=== PATIENT | female | born 1965 | race Two or more races ===

== ENCOUNTER 2016-09-09 11:15 | Emergency (ER) | payer MEDICARE, MEDICAID ==
[~2016-09-09] VITALS: Ht 167.6 cm; Wt 55.0 kg
[~2016-09-09 11:15] MED LIST: CLON1TAB4 PO; SERT100T PO; SIMV10TA6 PO; TEMA30CA PO; ZYDS20 PO
[2016-09-09 17:16] VITALS: BP 146/94
== END 2016-09-09 17:17 | disposition left against medical advice (07) ==
LOC: ER 11:29
DX: F10.129 Alcohol abuse with intoxication, unspecified (principal); I10 Essential (primary) hypertension; E78.00 Pure hypercholesterolemia, unspecified; F41.9 Anxiety disorder, unspecified; R55 Syncope and collapse; Z79.899 Other long term (current) drug therapy; F31.9 Bipolar disorder, unspecified; Z90.89 Acquired absence of other organs; Y90.8 Blood alcohol level of 240 mg/100 ml or more
CPT/HCPCS: 36415; 99283; G0482

== ENCOUNTER 2018-12-27 15:21 | Inpatient (IN) | payer MEDICARE, MEDICAID ==
[~2018-12-27] VITALS: Ht 160 cm; Wt 64.9 kg
[~2018-12-27 15:21] MED LIST changes: +CLON1TAB12 PO; -CLON1TAB4 PO
[2018-12-27] MEDS ORDERED: SODIUM CHLORIDE 0.9% 1,000 ML IV ONE (16:33)
[2018-12-27] MEDS ORDERED: LORAZEPAM 2MG/ML CPJ ONE (16:35)
[2018-12-27] MEDS ORDERED: HYDRALAZINE 20MG/ML VIAL IV ONE (16:45)
[2018-12-27] MEDS ORDERED: LORAZEPAM 2MG/ML CPJ IV ONE (16:45)
[2018-12-27 16:55] LABS: BASOPHILS % 0.4 % (0.0-2.0); EOSINOPHILS % 0.1 % (0.0-5.0); HEMATOCRIT. 38.5 % (36.0-48.0); HEMOGLOBIN. 13.1 g/dL (12.0-16.0); LYMPHOCYTES % 20.7 % (20.0-50.0); MEAN CORPUSCULAR VOLUME 99.8 fL (81.0-99.0); MEAN PLATELET VOLUME 7.6 fl (7.4-10.4); MONOCYTES % 4.9 % (2.0-8.0); NEUTROPHILS % 73.9 % (40.0-76.0); PLATELET 192 x1000/uL (130-400); RED BLOOD CELL COUNT 3.86 mill/uL (4.2-5.4); RED CELL DISTRIBUTION WIDTH 13.9 % (11.6-14.6)
[2018-12-27 17:12] LABS: CHLORIDE 95 mEq/L (98-107)
[2018-12-27 17:17] LABS: ETHANOL BLOOD 32 mg/dL
[2018-12-27 17:29] LABS: CARBAMAZEPINE < 0.5 ug/mL (4-12); PHENOBARBITAL < 2.1 ug/mL (15.0-40.0)
[2018-12-27] MEDS ORDERED: LACTULOSE 20G/30ML UDC PO ONE (18:15)
[2018-12-27] MEDS ORDERED: FOLIC ACID 1 MG, THIAMINE HCL 100 MG, MVI, ADULT NO.1 10 ML in DEXTROSE 5% WATER 1,000 ML IV ONE ×4 (18:30)
[2018-12-27] MEDS ORDERED: LEVETIRACETAM 500MG PREMIX 100 ML IV ONE (18:30)
[2018-12-27] MEDS ORDERED: THIAMINE HCL 100 MG/1 ML 2ML VIAL ONE (19:04)
[2018-12-27 19:15] LABS: CLARITY URINE CLEAR (CLEAR); COLOR URINE YELLOW (YELLOW); KETONES URINE NEGATIVE (NEGATIVE); LEUKOCYTE ESTERASE URINE TRACE (NEGATIVE); NITRITE URINE POSITIVE (NEGATIVE); OCCULT BLOOD URINE NEGATIVE (NEGATIVE); PROTEIN URINE NEGATIVE (NEGATIVE); SPECIFIC GRAVITY URINE 1.006 (1.005-1.030); UROBILINOGEN URINE 0.2 E.U./dL (0.2-1.0)
[2018-12-27 19:26] LABS: *AMPHETAMINES SCREEN URINE NEGATIVE (NEGATIVE); *BARBITURATES SCREEN URINE NEGATIVE (NEGATIVE)
[2018-12-27 19:27] LABS: *BENZODIAZEPINES SCREEN URINE NEGATIVE (NEGATIVE); *COCAINE SCREEN URINE NEGATIVE (NEGATIVE); CANNABINOID URINE SCREEN NEGATIVE (NEGATIVE); METHADONE URINE SCREEN NEGATIVE (NEGATIVE); OPIATES URINE SCREEN NEGATIVE (NEGATIVE); PHENCYCLIDINE URINE SCREEN NEGATIVE (NEGATIVE)
[2018-12-27 20:10] VITALS: BP 156/96
[2018-12-27] MEDS ORDERED: ONDANSETRON HCL 4MG/2ML INJ IV PRN (21:30)
[2018-12-27] MEDS ORDERED: ACETAMINOPHEN 325MG TABLET PO PRN (21:30)
[2018-12-27] MEDS ORDERED: ZOLPIDEM TARTRATE 5MG TABLET PO PRN (21:30)
[2018-12-27] MEDS ORDERED: IPRATROPIUM/ALBUTEROL 0.5-3(2.5)MG/3ML NEB HHN PRN (21:30)
[2018-12-27] MEDS ORDERED: ENOXAPARIN 40MG/0.4ML SYR SUBCUT SCH (21:30)
[2018-12-27 22:16] LABS: HEPATITIS B SURFACE ANTIGEN NEGATIVE
[2018-12-27 22:46] LABS: HEPATITIS A AB IGM NEGATIVE (NEGATIVE)
[2018-12-27] MEDS ORDERED: ENOXAPARIN 30MG/0.3ML SYR SUBCUT SCH (23:00)
[2018-12-27] MEDS: LACTULOSE 20G/30ML UDC PO SCH (23:05)
[2018-12-27] MEDS: LORAZEPAM 2MG/ML CPJ IV PRN (23:06)
[2018-12-28] VITALS: BP 160/91
[2018-12-28] MEDS: CLONIDINE 0.2MG TABLET PO PRN ×3 (01:15→20:38)
[2018-12-28 04:00] VITALS: BP 155/94
[2018-12-28] MEDS: LACTULOSE 20G/30ML UDC PO SCH ×3 (06:32→21:46)
[2018-12-28 07:29] LABS: BG BASE EXCESS 0.2 mmol/L (-2.0-2.0); BG CARBOXYHEMOGLOBIN 0.6 % (0.5-1.5); BG DEOXYHEMOGLOBIN 3.5 % (0.0-5.0); BG HCO3 ACT 24.1 mmol/L (22.0-26.0); BG METHEMOGLOBIN 0.2 % (0.0-1.5); BG OXYGEN SATURATION 96.5 % (92.0-98.5); BG OXYHEMOGLOBIN 95.7 % (94.0-97.0); BG PCO2 36.4 mmHg (35.0-45.0); BG PH 7.438 (7.350-7.450); BG SAMPLE SITE RIGHT BRACHIAL; BG TOTAL HEMOGLOBIN 13.2 g/dL (12.0-18.0); BG VENT MODE ROOM AIR
[2018-12-28 08:00] VITALS: BP 186/108
[2018-12-28] MEDS ORDERED: CLONAZEPAM 1MG TABLET PO SCH (09:00)
[2018-12-28] MEDS ORDERED: SERTRALINE HCL 100MG TABLET PO SCH (09:00)
[2018-12-28] MEDS: SERTRALINE HCL 100MG TABLET PO SCH (09:43)
[2018-12-28 10:44] LABS: CHLORIDE 92 mEq/L (98-107)
[2018-12-28 11:32] LABS: VITAMIN B12 SERUM 1056 pg/mL (211-911)
[2018-12-28 11:34] LABS: FOLIC ACID (FOLATE) SERUM > 20.00 ng/mL (>5.38)
[2018-12-28] MEDS: THIAMINE HCL 100MG TABLET PO SCH ×2 (15:35→16:37)
[2018-12-28] MEDS: FOLIC ACID 1MG TABLET PO SCH (15:35)
[2018-12-28] MEDS: LORAZEPAM 2MG/ML CPJ IV PRN (15:42)
[2018-12-28 20:00] VITALS: BP 172/120
[2018-12-28] MEDS: POTASSIUM CHLORIDE 20MEQ TABLET SR PO SCH (20:37)
[2018-12-28] MEDS: CLONAZEPAM 1MG TABLET PO SCH (20:38)
[2018-12-28] MEDS: ENOXAPARIN 40MG/0.4ML SYR SUBCUT SCH (20:39)
[2018-12-29] VITALS: BP 169/105
[2018-12-29] MEDS: LORAZEPAM 2MG/ML CPJ IV PRN (02:20)
[2018-12-29 04:00] VITALS: BP 169/104
[2018-12-29] MEDS: LACTULOSE 20G/30ML UDC PO SCH ×3 (05:17→21:14)
[2018-12-29] MEDS: CLONIDINE 0.2MG TABLET PO PRN ×2 (05:19→17:17)
[2018-12-29 06:20] LABS: BASOPHILS % 0.1 % (0.0-2.0); EOSINOPHILS % 0.2 % (0.0-5.0); HEMATOCRIT. 36.4 % (36.0-48.0); HEMOGLOBIN. 13.1 g/dL (12.0-16.0); LYMPHOCYTES % 13.4 % (20.0-50.0); MEAN CORPUSCULAR HEMOGLOBIN 34.8 pg (28.0-32.0); MEAN CORPUSCULAR VOLUME 96.6 fL (81.0-99.0); MEAN PLATELET VOLUME 7.6 fl (7.4-10.4); MONOCYTES % 6.4 % (2.0-8.0); NEUTROPHILS % 79.9 % (40.0-76.0); PLATELET 199 x1000/uL (130-400); RED BLOOD CELL COUNT 3.76 mill/uL (4.2-5.4); RED CELL DISTRIBUTION WIDTH 13.8 % (11.6-14.6)
[2018-12-29 06:41] LABS: CHLORIDE 84 mEq/L (98-107)
[2018-12-29 08:00] VITALS: BP 155/100
[2018-12-29] MEDS ORDERED: SODIUM CHLORIDE 3% 500ML IV SOLN IV ONE (08:15)
[2018-12-29] MEDS ORDERED: ENOXAPARIN 40MG/0.4ML SYR SUBCUT SCH (09:00)
[2018-12-29] MEDS: THIAMINE HCL 100MG TABLET PO SCH ×2 (10:23→17:17)
[2018-12-29] MEDS: POTASSIUM CHLORIDE 20MEQ TABLET SR PO SCH ×2 (10:23→20:21)
[2018-12-29] MEDS: FOLIC ACID 1MG TABLET PO SCH (10:23)
[2018-12-29] MEDS: SERTRALINE HCL 100MG TABLET PO SCH (10:23)
[2018-12-29] MEDS: RIFAXIMIN 550 MG TABLET PO SCH ×2 (11:35→20:21)
[2018-12-29 12:00] VITALS: BP 150/100
[2018-12-29] MEDS ORDERED: SODIUM CHLORIDE 3% 500 ML IV NR (12:00)
[2018-12-29 16:00] VITALS: BP 180/110
[2018-12-29 20:00] VITALS: BP 175/109
[2018-12-29] MEDS: CLONAZEPAM 1MG TABLET PO SCH (20:21)
[2018-12-29] MEDS: ENOXAPARIN 40MG/0.4ML SYR SUBCUT SCH (20:24)
[2018-12-29] MEDS ORDERED: LORAZEPAM 2MG/ML CPJ IV NR (21:00)
[2018-12-29] MEDS ORDERED: METOPROLOL TARTRATE 25MG TABLET PO NR (21:00)
[2018-12-29] MEDS: TEMAZEPAM 15MG CAPSULE PO PRN (22:20)
[2018-12-30] VITALS: BP 148/69
[2018-12-30 04:00] VITALS: BP 175/98
[2018-12-30] MEDS: LACTULOSE 20G/30ML UDC PO SCH ×3 (06:26→21:34)
[2018-12-30] MEDS: CLONIDINE 0.2MG TABLET PO PRN ×2 (06:38→16:27)
[2018-12-30 07:02] LABS: BASOPHILS % 0.1 % (0.0-2.0); EOSINOPHILS % 0.1 % (0.0-5.0); HEMATOCRIT. 36.2 % (36.0-48.0); HEMOGLOBIN. 12.4 g/dL (12.0-16.0); LYMPHOCYTES % 8.9 % (20.0-50.0); MEAN CORPUSCULAR HEMOGLOBIN 33.7 pg (28.0-32.0); MEAN CORPUSCULAR VOLUME 98.3 fL (81.0-99.0); MEAN PLATELET VOLUME 7.7 fl (7.4-10.4); MONOCYTES % 8.1 % (2.0-8.0); NEUTROPHILS % 82.8 % (40.0-76.0); PLATELET 217 x1000/uL (130-400); RED BLOOD CELL COUNT 3.68 mill/uL (4.2-5.4); RED CELL DISTRIBUTION WIDTH 13.8 % (11.6-14.6)
[2018-12-30 07:07] LABS: CHLORIDE 83 mEq/L (98-107)
[2018-12-30 08:00] VITALS: BP 156/78
[2018-12-30] MEDS ORDERED: HALOPERIDOL LACTATE 5MG/ML VIAL IM NR (08:15)
[2018-12-30] MEDS: RIFAXIMIN 550 MG TABLET PO SCH ×2 (08:30→20:44)
[2018-12-30] MEDS: DEMECLOCYCLINE HCL 300MG TABLET PO SCH ×3 (08:30→21:34)
[2018-12-30] MEDS: THIAMINE HCL 100MG TABLET PO SCH ×2 (08:31→16:27)
[2018-12-30] MEDS: METOPROLOL TARTRATE 25MG TABLET PO SCH ×2 (08:31→20:44)
[2018-12-30] MEDS: SERTRALINE HCL 100MG TABLET PO SCH (08:31)
[2018-12-30] MEDS: FOLIC ACID 1MG TABLET PO SCH (08:31)
[2018-12-30] MEDS: POTASSIUM CHLORIDE 20MEQ TABLET SR PO SCH ×2 (08:31→20:43)
[2018-12-30] MEDS ORDERED: HALOPERIDOL 0.5MG TABLET PO PRN (09:00)
[2018-12-30 12:00] VITALS: BP 158/92
[2018-12-30] MEDS: CEFEPIME 1,000 MG in DEXTROSE 5% WATER 50 ML IV SCH ×2 (13:12→20:48)
[2018-12-30 16:00] VITALS: BP 163/74
[2018-12-30 20:00] VITALS: BP 144/81
[2018-12-30] MEDS: CLONAZEPAM 1MG TABLET PO SCH (20:43)
[2018-12-30] MEDS: TEMAZEPAM 15MG CAPSULE PO PRN ×2 (20:45→21:34)
[2018-12-30] MEDS: ENOXAPARIN 40MG/0.4ML SYR SUBCUT SCH (20:46)
[2018-12-31] VITALS: BP 144/72
[2018-12-31 04:00] VITALS: BP 131/70
[2018-12-31] MEDS: LACTULOSE 20G/30ML UDC PO SCH ×2 (05:38→13:04)
[2018-12-31] MEDS: DEMECLOCYCLINE HCL 300MG TABLET PO SCH ×2 (05:38→13:04)
[2018-12-31 07:08] LABS: HEMATOCRIT. 34.1 % (36.0-48.0); HEMOGLOBIN. 12.2 g/dL (12.0-16.0); MEAN CORPUSCULAR HEMOGLOBIN 34.4 pg (28.0-32.0); MEAN CORPUSCULAR VOLUME 96.1 fL (81.0-99.0); MEAN PLATELET VOLUME 7.8 fl (7.4-10.4); PLATELET 192 x1000/uL (130-400); RED BLOOD CELL COUNT 3.55 mill/uL (4.2-5.4); RED CELL DISTRIBUTION WIDTH 13.7 % (11.6-14.6)
[2018-12-31 07:27] LABS: CHLORIDE 89 mEq/L (98-107)
[2018-12-31 08:00] VITALS: BP 158/90
[2018-12-31] MEDS: POTASSIUM CHLORIDE 20MEQ TABLET SR PO SCH (08:31)
[2018-12-31] MEDS: SERTRALINE HCL 100MG TABLET PO SCH (08:32)
[2018-12-31] MEDS: RIFAXIMIN 550 MG TABLET PO SCH (08:32)
[2018-12-31] MEDS: METOPROLOL TARTRATE 25MG TABLET PO SCH (08:32)
[2018-12-31] MEDS: CEFEPIME 1,000 MG in DEXTROSE 5% WATER 50 ML IV SCH (08:32)
[2018-12-31] MEDS: THIAMINE HCL 100MG TABLET PO SCH ×2 (08:32→16:45)
[2018-12-31] MEDS: FOLIC ACID 1MG TABLET PO SCH (08:32)
[2018-12-31] MEDS ORDERED: THIA50TA11 MT (09:20)
[2018-12-31] MEDS ORDERED: METO-396 MT (09:20)
[2018-12-31] MEDS ORDERED: LACT10SO MT (09:20)
[2018-12-31] MEDS ORDERED: CLON0.2T PO (09:20)
[2018-12-31] MEDS ORDERED: SODIUM CHLORIDE 3% 500 ML IV NR (10:00)
[2018-12-31 10:27] VITALS: BP 158/90
[2018-12-31 12:00] VITALS: BP 160/86
[2018-12-31 15:00] LABS: PLATELET ESTIMATE NORMAL
[2018-12-31 16:00] VITALS: BP 160/80
== END 2018-12-31 17:52 | disposition home or self-care (01) | DRG 101 ==
LOC: ER 15:21 → 8WST 18:25 → ENRESERV 19:36 → 8WST 12-29 18:20
PROVIDERS: ADMIT Internal Medicine Geriatric Medicine; ATTEND Internal Medicine Geriatric Medicine
DX: G40.89 Other seizures (principal); F10.239 Alcohol dependence with withdrawal, unspecified; E87.1 Hypo-osmolality and hyponatremia; D75.89 Other specified diseases of blood and blood-forming organs; Y90.1 Blood alcohol level of 20-39 mg/100 ml; K70.9 Alcoholic liver disease, unspecified; I10 Essential (primary) hypertension; F31.9 Bipolar disorder, unspecified; R73.9 Hyperglycemia, unspecified; F43.10 Post-traumatic stress disorder, unspecified; E87.6 Hypokalemia; G47.00 Insomnia, unspecified; F20.9 Schizophrenia, unspecified; D72.829 Elevated white blood cell count, unspecified; G31.2 Degeneration of nervous system due to alcohol; K76.0 Fatty (change of) liver, not elsewhere classified; Z79.899 Other long term (current) drug therapy
CPT/HCPCS: 36415; 36600; 71045; 76700; 80156; 80165; 80184; 80185; 80305; 80320; 81003; 82140; 82375; 82607; 82746; 82805; 82962; 84484; 86705; 86709; 86803; 87340; 93005; 97161; 99285; C1893; J0360; J0692; J1630; J1650; J1953; J2060; J3411; J3490; J7030; J7040; J7060; J7070; G0480

== ENCOUNTER 2019-09-29 12:46 | Emergency (ER) | payer MEDICARE, MEDICAID ==
[~2019-09-29] VITALS: Ht 160 cm; Wt 66.0 kg
[~2019-09-29 12:46] MED LIST changes: +CLON0.2T PO; +LACT10SO MT; +METO-396 MT; -SIMV10TA6 PO; +SIMV10TA97 PO; +THIA50TA11 MT
[2019-09-29] MEDS ORDERED: IBUPROFEN 600MG TABLET PO ONE (13:45)
[2019-09-29 15:11] VITALS: BP 154/101
[2019-10-06] MEDS ORDERED: ATOR20TA65 PO (17:28)
[2019-10-06] MEDS ORDERED: ZIPR60CA6 PO (17:28)
[2019-10-06] MEDS ORDERED: ZIPR80CA2 PO (17:28)
[2019-10-07] MEDS ORDERED: IBUP-2030 PO (12:21)
[2019-10-07] MEDS ORDERED: HYDR-4001 PO (12:21)
[2019-10-07] MEDS ORDERED: CLON0.2T PO (12:24)
[2019-10-10] MEDS ORDERED: AMLO5TAB88 PO (11:36)
== END 2019-09-29 15:52 | disposition home or self-care (01) ==
LOC: ER 12:46
DX: S49.092A Other physeal fracture of upper end of humerus, left arm, initial encounter for closed fracture (principal); I10 Essential (primary) hypertension; F31.9 Bipolar disorder, unspecified; Z90.89 Acquired absence of other organs; W06.XXXA Fall from bed, initial encounter; Y93.89 Activity, other specified; Y92.013 Bedroom of single-family (private) house as the place of occurrence of the external cause
CPT/HCPCS: 73060; 73070; 99284

== ENCOUNTER → 2019-10-06 | Outpatient (CLI) | payer MEDICARE, MEDICAID ==
[~2019-10-06] MED LIST changes: +ATOR20TA65 PO; +HYDR-4001 PO; +IBUP-2030 PO; +ZIPR60CA6 PO; +ZIPR80CA2 PO
== END | disposition home or self-care (01) ==
LOC: LAB 11:44
PROVIDERS: ATTEND Orthopaedic Surgery
DX: Z01.818 Encounter for other preprocedural examination (principal); Z11.59 Encounter for screening for other viral diseases
CPT/HCPCS: C9803; U0003

== ENCOUNTER 2020-08-11 03:47 | Emergency (ER) | payer MEDICARE, MEDICAID ==
[~2020-08-11] VITALS: Ht 165.1 cm; Wt 68.0 kg
[~2020-08-11 03:47] MED LIST changes: +AMLO5TAB88 PO; -CLON0.2T PO; -IBUP-2030 PO; -LACT10SO MT; -METO-396 MT; -SERT100T PO; -SIMV10TA97 PO; -TEMA30CA PO; -THIA50TA11 MT; -ZYDS20 PO
[2020-08-11] MEDS ORDERED: ONDANSETRON HCL 4MG/2ML INJ IV STA (04:53)
[2020-08-11] MEDS ORDERED: SODIUM CHLORIDE 0.9% 1,000 ML IV ONE (05:00)
[2020-08-11] MEDS ORDERED: LEVETIRACETAM 500MG PREMIX 100 ML IV ONE (05:00)
[2020-08-11 05:23] LABS: BASOPHILS % 0.2 % (0.0-2.0); CHLORIDE 93 mEq/L (98-107); EOSINOPHILS % 0.1 % (0.0-5.0); HEMATOCRIT. 38.7 % (36.0-48.0); MEAN CORPUSCULAR VOLUME 95.5 fL (81.0-99.0); MONOCYTES % 7.8 % (2.0-8.0); NEUTROPHILS % 76.9 % (40.0-76.0); PLATELET 150 x1000/uL (130-400); RED BLOOD CELL COUNT 4.05 mill/uL (4.2-5.4); RED CELL DISTRIBUTION WIDTH 14.7 % (11.6-14.6)
[2020-08-11 05:29] LABS: ETHANOL BLOOD < 10 mg/dL
[2020-08-11] MEDS ORDERED: KEPP500 MT (05:50)
[2020-08-11 06:47] VITALS: BP 180/99
== END 2020-08-11 06:48 | disposition home or self-care (01) ==
LOC: ER 03:47
DX: R56.9 Unspecified convulsions (principal); I10 Essential (primary) hypertension; F20.9 Schizophrenia, unspecified; Z98.890 Other specified postprocedural states
CPT/HCPCS: 36415; 70450; 71045; 80053; 80320; 85025; 93005; 96365; 96375; 99285; J1953; J2405; J7030; G0480

== ENCOUNTER 2021-11-17 08:36 | Inpatient (IN) | payer MEDICARE, MEDICAID ==
[~2021-11-17] VITALS: Ht 165.1 cm; Wt 56.7 kg
[~2021-11-17 08:36] MED LIST changes: +KEPP500 MT
[2021-11-17] MEDS ORDERED: LORAZEPAM 2MG/ML CPJ ONE (09:53)
[2021-11-17] MEDS ORDERED: LEVETIRACETAM 1000MG PREMIX 100 ML IV ONE (10:00)
[2021-11-17 10:39] LABS: BASOPHILS % 0.3 % (0.0-2.0); HEMATOCRIT. 36.2 % (36.0-48.0); HEMOGLOBIN. 12.7 g/dL (12.0-16.0); LYMPHOCYTES % 13.5 % (20.0-50.0); MEAN CORPUSCULAR HEMOGLOBIN 33.2 pg (28.0-32.0); MEAN CORPUSCULAR VOLUME 95.1 fL (81.0-99.0); MEAN PLATELET VOLUME 6.8 fl (7.4-10.4); MONOCYTES % 6.9 % (2.0-8.0); NEUTROPHILS % 79.3 % (40.0-76.0); PLATELET 208 x1000/uL (130-400); RED BLOOD CELL COUNT 3.81 mill/uL (4.2-5.4); RED CELL DISTRIBUTION WIDTH 16.1 % (11.6-14.6)
[2021-11-17] MEDS ORDERED: LEVETIRACETAM 1000MG PREMIX 100 ML IV NR (10:45)
[2021-11-17 10:48] LABS: CHLORIDE 82 mEq/L (98-107)
[2021-11-17 10:56] LABS: ETHANOL BLOOD < 10 mg/dL
[2021-11-17] MEDS ORDERED: LORAZEPAM 2MG/ML CPJ IV ONE (12:30)
[2021-11-17] MEDS ORDERED: LORAZEPAM 1MG TABLET PO ONE (12:30)
[2021-11-17] MEDS ORDERED: POTASSIUM CHLORIDE 20MEQ TABLET SR PO ONE (15:15)
[2021-11-17] MEDS ORDERED: ACETAMINOPHEN 325MG TABLET PO PRN (15:30)
[2021-11-17] MEDS ORDERED: CLONIDINE 0.1MG TABLET PO PRN (15:30)
[2021-11-17] MEDS ORDERED: IPRATROPIUM/ALBUTEROL 0.5-3(2.5)MG/3ML NEB HHN PRN (15:30)
[2021-11-17] MEDS ORDERED: DIPHENHYDRAMINE 50MG/ML VIAL IV PRN (15:30)
[2021-11-17] MEDS ORDERED: ONDANSETRON HCL 4MG/2ML INJ IV PRN (15:30)
[2021-11-17] MEDS ORDERED: LORAZEPAM 2MG/ML CPJ IV PRN (15:30)
[2021-11-17] MEDS: SODIUM CHLORIDE 0.9% 1,000 ML IV SCH ×3 (16:05→19:02)
[2021-11-17 18:00] VITALS: BP 130/75
[2021-11-17 20:00] VITALS: BP 136/100
[2021-11-17] MEDS ORDERED: LEVETIRACETAM 500MG PREMIX 100 ML IV SCH ×2 (21:00→22:00)
[2021-11-17] MEDS ORDERED: ATORVASTATIN CALCIUM 20MG TABLET PO SCH (21:00)
[2021-11-17] MEDS: CHLORDIAZEPOXIDE 25MG CAPSULE PO SCH (21:20)
[2021-11-17] MEDS: AMLODIPINE 5MG TABLET PO SCH (21:20)
[2021-11-17] MEDS: CLONAZEPAM 1MG TABLET PO SCH (21:21)
[2021-11-17] MEDS ORDERED: ZIPRASIDONE HCL 40MG CAPSULE PO SCH (22:00)
[2021-11-18] VITALS: BP 147/95
[2021-11-18] MEDS ORDERED: TEMAZEPAM 15MG CAPSULE PO PRN
[2021-11-18 04:00] VITALS: BP 137/100
[2021-11-18] MEDS: CHLORDIAZEPOXIDE 25MG CAPSULE PO SCH (06:29)
[2021-11-18] MEDS: CLONAZEPAM 1MG TABLET PO SCH (06:29)
[2021-11-18 07:18] LABS: CHLORIDE 93 mEq/L (98-107)
[2021-11-18 08:00] VITALS: BP 149/94
[2021-11-18] MEDS: AMLODIPINE 5MG TABLET PO SCH (08:55)
[2021-11-18] MEDS ORDERED: POTASSIUM CHLORIDE 20MEQ/PACKET PO NR (09:45)
== END 2021-11-18 09:10 | disposition left against medical advice (07) | DRG 101 ==
LOC: ER 08:36 → 7WST 13:32 → EDBEDREQTM 13:37 → EDBEDREQ 13:37 → ENRESERV 13:51 → 7WST 11-18 06:06
PROVIDERS: ADMIT Internal Medicine; ATTEND Internal Medicine
DX: R56.9 Unspecified convulsions (principal); F13.239 Sedative, hypnotic or anxiolytic dependence with withdrawal, unspecified; E87.1 Hypo-osmolality and hyponatremia; F20.9 Schizophrenia, unspecified; I10 Essential (primary) hypertension; F10.20 Alcohol dependence, uncomplicated; R74.01 Elevation of levels of liver transaminase levels; E87.6 Hypokalemia; Z53.29 Procedure and treatment not carried out because of patient's decision for other reasons; Z91.14 Patient's other noncompliance with medication regimen
CPT/HCPCS: 36415; 80053; 80320; 82962; 85025; 93970; 99285; J1953; J2060; G0480

== ENCOUNTER 2022-02-18 23:16 | Emergency (ER) | payer MEDICARE, MEDICAID ==
[~2022-02-18] VITALS: Ht 162.6 cm; Wt 97.6 kg
[2022-02-18] MEDS ORDERED: KETOROLAC 60MG/2ML VIAL IM ONE (23:45)
[2022-02-18] MEDS ORDERED: HYDROCODONE/ACETAMINOPHEN 5/325MG TABLET PO ONE (23:45)
[2022-02-18] MEDS ORDERED: LIDOCAINE HCL 1% 20ML VIAL (Pyxis) INJ INFIL ONE (23:45)
[2022-02-19 00:05] VITALS: BP 206/118
[2022-02-19] MEDS ORDERED: LIDOCAINE HCL 1% 10 MG/ML 10ML VIAL IJ NR (00:45)
[2022-02-19] MEDS ORDERED: NAPR-681 PO (12:00)
[2022-02-19] MEDS ORDERED: HYDR-4001 MT (12:00)
== END 2022-02-19 01:40 | disposition left against medical advice (07) ==
LOC: ER 23:16
DX: S52.592A Other fractures of lower end of left radius, initial encounter for closed fracture (principal); S52.602A Unspecified fracture of lower end of left ulna, initial encounter for closed fracture; W18.39XA Other fall on same level, initial encounter; Y93.89 Activity, other specified; Y92.89 Other specified places as the place of occurrence of the external cause; Y99.8 Other external cause status; I10 Essential (primary) hypertension; Z98.890 Other specified postprocedural states; Z87.891 Personal history of nicotine dependence; Z79.899 Other long term (current) drug therapy
CPT/HCPCS: 29125; 73090; 73110; 96372; 99284; J1885; J3490

== ENCOUNTER 2022-02-19 10:05 | Emergency (ER) | payer MEDICARE, MEDICAID ==
[~2022-02-19] VITALS: Ht 160 cm; Wt 59.0 kg
[2022-02-19 10:41] VITALS: BP 127/78
[2022-02-19] MEDS ORDERED: LIDOCAINE HCL/PF 1% 10 MG/ML 5ML VIAL INFIL ONE (10:45)
[2022-02-19] MEDS ORDERED: HYDROCODONE/ACETAMINOPHEN 5/325MG TABLET PO ONE (10:45)
[2022-02-19] MEDS ORDERED: KETOROLAC 30MG/ML VIAL IM ONE (10:45)
[2022-02-19] MEDS ORDERED: HYDR-4001 MT (12:00)
[2022-02-19] MEDS ORDERED: NAPR-681 PO (12:00)
== END 2022-02-19 12:16 | disposition home or self-care (01) ==
LOC: ER 10:05
DX: S52.591A Other fractures of lower end of right radius, initial encounter for closed fracture (principal); S52.601A Unspecified fracture of lower end of right ulna, initial encounter for closed fracture; W18.39XA Other fall on same level, initial encounter; Y93.89 Activity, other specified; Y92.89 Other specified places as the place of occurrence of the external cause; Y99.8 Other external cause status; Z79.899 Other long term (current) drug therapy
CPT/HCPCS: 25605; 73110; 96372; 99284; J1885; J3490

== ENCOUNTER 2022-12-18 20:47 | Emergency (ER) | payer MEDICARE, MEDICAID ==
[~2022-12-18 20:47] MED LIST changes: +HYDR-4001 MT; +NAPR-681 PO
[2022-12-18 20:53] VITALS: PULSE 129
== END 2022-12-18 21:43 | disposition left against medical advice (07) ==
LOC: ER 20:47
DX: Z76.0 Encounter for issue of repeat prescription (principal); Z53.21 Procedure and treatment not carried out due to patient leaving prior to being seen by health care provider
CPT/HCPCS: 99281

== ENCOUNTER 2022-12-20 09:52 | Emergency (ER) | payer MEDICARE, MEDICAID ==
[~2022-12-20] VITALS: Ht 160 cm; Wt 65.0 kg
[2022-12-20 09:54] VITALS: TEMP 98; O2SAT 97
[2022-12-20] MEDS ORDERED: LORAZEPAM 2MG/ML CPJ IV ONE (10:15)
[2022-12-20 10:47] LABS: CHLORIDE 84 mEq/L (98-107); INDEX HEMOLYSI 3 (1-3); INDEX ICTERIC 1 (1-4); INDEX LIPEMIC 1 (1-3); POTASSIUM 3.2 mEq/L (3.5-5.1)
[2022-12-20 10:59] LABS: ALANINE AMINOTRANSFERASE 80 IU/L (13-61); ALBUMIN 4.5 g/dL (3.4-5.0); ASPARTATE AMINOTRANSFERASE 97 IU/L (15-37); BILIRUBIN TOTAL 2.2 mg/dL (0.1-1.0); CALCIUM 8.6 mg/dL (8.5-10.1); CARBON DIOXIDE 18 mEq/L (21-32); CREATININE 0.5 mg/dL (0.6-1.3); ETHANOL BLOOD < 10 mg/dL (<10); GLUCOSE 174 mg/dL (70-105); NT PRO B-TYPE NATRIURETIC PEP 772 pg/mL (5-125); PROTEIN TOTAL 8.6 g/dL (6.0-8.3); TROPONIN I HIGH SENSITIVITY 12 ng/L (<54); UREA NITROGEN BLOOD 10 mg/dL (7-21)
[2022-12-20 11:04] LABS: BASOPHILS % 0.2 % (0.0-2.0); EOSINOPHILS % 0.2 % (0.0-5.0); HEMATOCRIT. 36.5 % (36.0-48.0); HEMOGLOBIN. 13.1 g/dL (12.0-16.0); LYMPHOCYTES % 22.2 % (20.0-50.0); MEAN CORPUSCULAR HEMOGLOBIN 32.6 pg (28.0-32.0); MEAN CORPUSCULAR HGB CONC 35.9 g/dL (31.0-37.0); MEAN PLATELET VOLUME 7.5 fl (7.4-10.4); MONOCYTES % 7.9 % (2.0-8.0); NEUTROPHILS % 69.5 % (40.0-76.0); PLATELET 163 x1000/uL (130-400); RED BLOOD CELL COUNT 4.01 mill/uL (4.2-5.4); RED CELL DISTRIBUTION WIDTH 12.8 % (11.6-14.6); WHITE BLOOD COUNT 5.5 x1000/uL (4.5-11.0)
[2022-12-20 11:07] LABS: DIFFERENTIAL COMMENT 1
[2022-12-20 11:19] LABS: SODIUM 119 mEq/L (136-145)
[2022-12-20] MEDS ORDERED: SODIUM CHLORIDE 0.9% 1,000 ML IV ONE (11:30)
[2022-12-20] MEDS ORDERED: HYDRALAZINE 20MG/ML VIAL IV ONE (11:30)
[2022-12-20 12:54] LABS: *AMPHETAMINES SCREEN URINE NEGATIVE (NEGATIVE); *BARBITURATES SCREEN URINE NEGATIVE (NEGATIVE); *BENZODIAZEPINES SCREEN URINE PRESUMTIVE POSITIVE (NEGATIVE); *COCAINE SCREEN URINE NEGATIVE (NEGATIVE); CANNABINOID URINE SCREEN NEGATIVE (NEGATIVE); ECSTASY MDMA SCREEN URINE NEGATIVE (NEGATIVE); OPIATES URINE SCREEN NEGATIVE (NEGATIVE); PHENCYCLIDINE URINE SCREEN NEGATIVE (NEGATIVE)
[2022-12-20] MEDS ORDERED: CLONIDINE 0.1MG TABLET PO NR (13:51)
[2022-12-20 14:29] VITALS: BP 171/94; PULSE 101; RESP 15
[2022-12-20 15:01] LABS: METHADONE URINE SCREEN INVALID (NEGATIVE)
== END 2022-12-20 14:30 | disposition left against medical advice (07) ==
LOC: ER 10:00 → EDBEDREQTM 13:00 → EDBEDREQ 13:00 → CANBEDREQ 14:29 → ER 14:30
DX: R56.9 Unspecified convulsions (principal); F13.10 Sedative, hypnotic or anxiolytic abuse, uncomplicated; I10 Essential (primary) hypertension; E78.00 Pure hypercholesterolemia, unspecified
CPT/HCPCS: 80053; 80305; 80320; 83880; 85025; 84484; 36415; 71045; 93005; 96361; 96374; 96375; 99285; J0360; J2060; J7030; G0480

== ENCOUNTER 2023-09-22 13:06 | Emergency (ER) | payer MEDICARE, MEDICAID ==
[~2023-09-22] VITALS: Ht 165.1 cm; Wt 55.0 kg
[2023-09-22 13:17] VITALS: BP 148/77; PULSE 87; RESP 16; TEMP 97.8; O2SAT 99
== END 2023-09-22 15:25 | disposition left against medical advice (07) ==
LOC: ER 13:06
DX: H57.12 Ocular pain, left eye (principal); Z53.21 Procedure and treatment not carried out due to patient leaving prior to being seen by health care provider

== ENCOUNTER 2024-06-20 08:07 | Emergency (ER) | payer MEDICARE, MEDICAID ==
[~2024-06-20] VITALS: Ht 160 cm; Wt 49.8 kg
[2024-06-20 08:16] VITALS: TEMP 36.9; O2SAT 99
[2024-06-20] MEDS: LIDOCAINE HCL/EPINEPHRINE 1%-EPI 1:100,000 20ML VIAL INFIL ONE (09:06)
[2024-06-20] MEDS: TETANUS, DIPHTHERIA, PERTUSSIS VAC/PF 0.5ML (>10YR OLD) IM ONE (09:06)
[2024-06-20] MEDS: BACITRACIN ZINC OINT UDPKT TOP ONE (09:08)
[2024-06-20] MEDS ORDERED: BO1 TP (09:59)
[2024-06-20 11:14] VITALS: BP 105/91; PULSE 87; RESP 16; O2SAT 100
== END 2024-06-20 11:08 | disposition home or self-care (01) ==
LOC: ER 08:07
DX: S01.81XA Laceration without foreign body of other part of head, initial encounter (principal); S51.812A Laceration without foreign body of left forearm, initial encounter; F13.10 Sedative, hypnotic or anxiolytic abuse, uncomplicated; I10 Essential (primary) hypertension; E78.00 Pure hypercholesterolemia, unspecified; Z79.899 Other long term (current) drug therapy; Z98.890 Other specified postprocedural states; W18.30XA Fall on same level, unspecified, initial encounter; Y93.89 Activity, other specified; Y92.89 Other specified places as the place of occurrence of the external cause; Y99.8 Other external cause status
CPT/HCPCS: 99285; 70450; 72125; 90715; 12013; 90471; J2004; A4606